=== PATIENT | female | born 1995 | race Caucasian/White ===

== ENCOUNTER 2016-08-20 00:31 | Emergency (ER) | payer SELFPAY ==
[2016-08-20] MEDS ORDERED: ONDANSETRON ODT 4 MG TAB ONE (02:38)
[2016-08-20] MEDS ORDERED: ACETAMINOPHEN 325 MG TAB ONE (03:01)
== END 2016-08-20 03:29 | disposition home or self-care (01) ==
LOC: ER 00:31
CPT/HCPCS: 36415; 74176; 80053; 81001; 81025; 84703; 85025; 87088